=== PATIENT | male | born 1965 | race Caucasian/White ===

== ENCOUNTER 2020-12-02 11:39 | Day surgery (SDC) | payer OTHER ==
[~2020-12-02 11:39] MED LIST: LACTATED RINGERS 1,000 ML IV SCH
[2020-12-02] MEDS ORDERED: LIDOCAINE 1% (10MG/ML) FOR IV START INTRADERMA ONE (13:05)
[2020-12-02 13:11] VITALS: RESP 16; TEMP 97.7
[2020-12-02] MEDS ORDERED: PROPOFOL 10 MG/ML 20 ML VIAL IV ONE (14:14)
[2020-12-02] MEDS ORDERED: LIDOCAINE 1% INJ 10MG/ML (20 ML MDV) ONE (14:14)
--- NOTE | 2020-12-02 14:32 | P.PCN ---
Date of Procedure: 12/02/20 Procedure(s) Performed: BRIEF HISTORY: Patient is a 55-year-old pleasant male scheduled for an elective colonoscopy as a part of evaluation of prior history of colon polyps. Last colonoscopy was 5 years ago and was noted to have a tubular adenoma. PROCEDURE PERFORMED: Colonoscopy with snare polypectomy. PREOPERATIVE DIAGNOSIS: History of colon polyps. IV sedation per Anesthesia. PROCEDURE: After informed consent was obtained, the patient, was brought into the endoscopy unit. IV sedation was administered by Anesthesia under continuous monitoring. Digital rectal examination was normal. Initially the Olympus CF-160 flexible video colonoscope was then inserted in the rectum, gradually advanced into the cecum without any difficulty. Careful examination was performed as the scope was gradually being withdrawn. Ileocecal valve and the appendiceal orifice were visualized and appeared normal. Prep was excellent. Mucosa of the cecum, ascending colon, appeared normal. In the transverse colon there was a 5 mm flat polyp removed by snare polypectomy. Rest of the transverse colon, descending colon, sigmoid colon, and rectum appeared normal. Scattered sigmoid diverticulosis seen. Retroflexion was performed in the rectum and no lesions were seen. The patient tolerated the procedure well. IMPRESSION: 5 mm transverse colon polyp status post polypectomy Scattered sigmoid diverticula. RECOMMENDATIONS: Findings of this examination were discussed with the patient as well as his family. He was advised to follow with the biopsy results. If the biopsy shows an adenoma he can have a repeat colonoscopy in 5 years
[2020-12-02 15:01] VITALS: BP 154/82; PULSE 66
== END 2020-12-02 15:17 | disposition home or self-care (01) ==
LOC: ORWHC2ENDO 11:39
PROVIDERS: ATTEND Internal Medicine Gastroenterology
DX: Z12.11 Encounter for screening for malignant neoplasm of colon (principal); D12.3 Benign neoplasm of transverse colon; K57.30 Diverticulosis of large intestine without perforation or abscess without bleeding; Z86.010 Personal history of colon polyps; I10 Essential (primary) hypertension; Z79.82 Long term (current) use of aspirin; Z79.899 Other long term (current) drug therapy; Z88.0 Allergy status to penicillin
CPT/HCPCS: 88305; 45385; J2001; J2704

== ENCOUNTER → 2020-12-12 | Outpatient (CLI) | payer OTHER ==
--- NOTE | 2020-12-12 19:41 | MR ---
EXAMINATION TYPE: MR lumbar spine wo con DATE OF EXAM: 12/12/2020 COMPARISON: CT 12/12/2020 HISTORY: LBP, radiating into right buttock x 2 years. TECHNIQUE: Multiplanar, multisequence images of the lumbar spine were acquired. L1-L2: Normal disc appearance without desiccation. No herniation, protrusion or disc bulging. No ca nal stenosis is present. Foramina are patent bilaterally. L2-L3: Normal disc appearance without desiccation. No herniation, protrusion or disc bulging. No ca nal stenosis is present. Foramina are patent bilaterally. There is some facet arthropathy change. L3-L4: Normal disc appearance without desiccation. No herniation, protrusion or disc bulging. No ca nal stenosis is present. Foramina are patent bilaterally. There is some facet arthropathy change. L4-L5: Facet arthropathy is present causing lateral mass effect on the thecal sac greater than L5-S1. There is encroachment on the lateral recess greater on the right. No significant foraminal encroachm ent. No sizable disc herniation. L5-S1: Anterolisthesis grade 1 L5-S1. Listhesis contributes cause bilateral foraminal encroachment. N o significant spinal stenosis. There are hypertrophic facet arthropathy changes causing some lateral mass effect on the thecal sac. There is loss of disc height signal. Lumbar segments are intact. No paraspinal masses are identified. Conus medullaris has a normal appe arance. Bilateral spondylolysis at L5. IMPRESSION: Spondylolysis, spondylolisthesis, degenerative disc disease, foraminal encroachment, facet arthropath y
--- NOTE | 2020-12-12 20:31 | CT ---
EXAMINATION TYPE: CT lumbar spine wo con DATE OF EXAM: 12/12/2020 4:14 PM COMPARISON: MRI lumbar spine same date. HISTORY: low back pain radiating down right leg CT DLP: 1284 mGycm Automated exposure control for dose reduction was used. Unenhanced CT of the lumbar spine was performed. Bone and soft tissue window settings are submitted as well as coronal and sagittal reconstructions. There are 5 lumbar-type vertebra identified. Bilateral pars defects with severe grade 1 anterolisthes is L5 on S1 measured 11 mm along the posterior vertebral body margin. Severe disc space narrowing wit h vacuum disc and endplate sclerosis L5-S1 level. Vertebral bodies and disc space heights otherwise m aintained. Review of axial images shows T12-L1 and L1-L2 levels all to appear within normal limits. Axial images at L2-L3 level shows mild facet degenerative changes bilaterally. Patent bilateral neura l foramina. Axial images at L3-L4 level show [id number] facet degenerative changes bilaterally. Mild broad disc bulge mildly effacing the anterior thecal sac. Patent bilateral neural foramina. Axial images at L4-L5 level shows moderate facet arthropathy bilaterally greater on the right effacin g the right lateral thecal sac. Tiny right paracentral disc protrusion of the spinal canal preserved. Patent bilateral neural foramina. Axial images at L5-S1 level show spondylolisthesis with mild to moderate facet arthropathy. Spinal ca nal preserved. Moderate to severe bilateral neural foraminal narrowing due to spondylolisthesis. Paraspinal muscle bulk maintained. IMPRESSION: Bilateral pars defect L5 level with significant spondylolisthesis. This causes moderate t o advanced bilateral neural foraminal narrowing at this level. Additional multilevel degenerative heaven nges as detailed above.
== END | disposition home or self-care (01) ==
LOC: RADMRIMAIN 15:37
PROVIDERS: ATTEND Orthopaedic Surgery
DX: M47.816 Spondylosis without myelopathy or radiculopathy, lumbar region (principal); M99.73 Connective tissue and disc stenosis of intervertebral foramina of lumbar region; M51.36 Other intervertebral disc degeneration, lumbar region; M12.88 Other specific arthropathies, not elsewhere classified, other specified site; M43.17 Spondylolisthesis, lumbosacral region
CPT/HCPCS: 72131; 72148